=== PATIENT | female | born 1990 | race Caucasian/White ===

== ENCOUNTER 2017-03-10 18:41 | Emergency (ER) | payer MEDICAID ==
--- NOTE | ~2017-03-10 | CR20 ---
[facility] A Service of [facility] & [facility] RADIOLOGY TEXT RESULTS PATIENT: ZHANG SHEPARD LOCATION: [facility] : [birth year] UNIT #: [id number] AGE: [address]: EBEN MURDOCK APRN SEX: F ORDER DR: [id number] [facility] [address] [place], [place] [address] [id number] E MR#: [id number] Acc #: [id number] NAME: ZHANG SHEPARD : 1990 SEX: F STUDY DATE/TIME: 03/10/2017 19:11 UNIT: [facility] ROOM: STUDY DESCRIPTION: CR Ankle Min 3 Views Lt Attending Physician: Eben Murdock Aprn Ordering Physician: Eben Murdock Aprn Primary Care Physician: No Primary Care Physician MEDICAL IMAGING REPORT This report is preliminary unless electronic signature is present EXAM Left ankle, 3 views, 03/10/17, 1911 hours. CLINICAL HISTORY Patient hit foot and ankle on a door today. Plantar and lateral foot and ankle pain today. COMPARISON None. FINDINGS AP, lateral and oblique views of the left ankle demonstrate no fracture, dislocation or degenerative change. IMPRESSION Negative left ankle. Dictated by... Yola Marie M.D. THIS IS AN ELECTRONICALLY VERIFIED REPORT Yola Marie M.D. at 03/11/2017 9:34 AM KENDALL/shana TD: 03/10/2017 22:36 JOB #: [id number] MEDICAL IMAGING REPORT Page 1 of 1 COPY
--- NOTE | ~2017-03-10 | CR126 ---
[facility] A Service of [facility] & [facility] RADIOLOGY TEXT RESULTS PATIENT: ZHANG SHEPARD LOCATION: [facility] : [birth year] UNIT #: [id number] AGE: [address]: EBEN MURDOCK APRN SEX: F ORDER DR: [id number] [facility] [address] [place], [place] [address] [id number] E MR#: [id number] Acc #: [id number] NAME: ZHANG SHEPARD : 1990 SEX: F STUDY DATE/TIME: 03/10/2017 19:13 UNIT: [facility] ROOM: STUDY DESCRIPTION: CR Foot Complete Min 3 View Lt Attending Physician: Eben Murdock Aprn Ordering Physician: Eben Murdock Aprn Primary Care Physician: No Primary Care Physician MEDICAL IMAGING REPORT This report is preliminary unless electronic signature is present EXAM Left foot, 3 views, 03/10/17, 1913 hours. CLINICAL HISTORY Patient complains of left foot and ankle pain today after hitting foot and ankle on a door. COMPARISON None. FINDINGS AP, lateral and oblique views demonstrate normal bone density. There is no fracture, dislocation or degenerative change. IMPRESSION Negative left foot. Dictated by... Yola Marie M.D. THIS IS AN ELECTRONICALLY VERIFIED REPORT Yola Marie M.D. at 03/11/2017 9:34 AM KENDALL/shana TD: 03/10/2017 22:39 JOB #: [id number] MEDICAL IMAGING REPORT Page 1 of 1 COPY
[~2017-03-10 18:41] MED LIST: DOLOBID; FLEXERIL10 MG PO
== END 2017-03-10 19:45 | disposition home or self-care (01) ==
LOC: CED 18:41 → CFTX 18:41
DX: S90.32XA Contusion of left foot, initial encounter (principal); W19.XXXA Unspecified fall, initial encounter; Y92.009 Unspecified place in unspecified non-institutional (private) residence as the place of occurrence of the external cause
CPT/HCPCS: 29540; 73610; 73630; 99283